=== PATIENT | female | born 1965 | race Caucasian/White ===

== ENCOUNTER → 2022-06-24 | Outpatient (CLI) | payer MEDICARE, OTHER ==
[~2022-06-24] MED LIST: IBUPROFEN800 MG PO; MEDROL4 MG PO; TESSALON PERLE100 MG PO; VENTOLIN HFA 66.7 GM INH; ZITHROMAX250 MG PO
== END | disposition home or self-care (01) ==
LOC: OR 06-21 08:00 → RAD 08:00 → OR 08:00
DX: M54.50 Low back pain, unspecified (principal)
CPT/HCPCS: 72132; Q9966